=== PATIENT | female | born 1975 | race African-American/Black ===

== ENCOUNTER → 2023-08-28 | Day surgery (SDC) | payer MEDICARE, MEDICAID ==
[~2023-08-28] VITALS: Ht 167.6 cm; Wt 89.4 kg
[~2023-08-28] MED LIST: ACETAMINOPHEN 500MG TABLET ONE; ALBU90AE INH; ALBUMIN HUMAN 12.5GM/50ML (25%) IV ONE; ALBUMIN HUMAN 5% 500 ML IV NR; ALBUMIN HUMAN 5% 500 ML IV SCH; BUDE10.26 IH; BUPIVACAINE HCL/PF 0.5% (5MG/ML) 10ML ONE; CALCIUM CHLORIDE 1GM/10ML SYR IV ONE; CARV3.1242 PO; CEFAZOLIN SODIUM 1000MG/VIAL ONE; FAMO20TA8 MT; FENTANYL CITRATE/PF 50MCG/ML 2ML VIAL IV PRN; FENTANYL CITRATE/PF 50MCG/ML 2ML VIAL ONE; FOLI-43 MT; FURO40TA5 MT; GLYCOPYRROLATE 0.2 MG/ML 2ML VIAL ONE; HYDROCODONE/ACETAMINOPHEN 5/325MG TABLET PO NR; LACT10SO7 MT; LACTATED RINGERS 1,000 ML IV SCH; METOCLOPRAMIDE HCL 10MG/2ML VIAL ONE; MIDAZOLAM HCL 2 MG/2 ML VIAL ONE; NEOSTIGMINE METHYLSULFATE 1MG/ML 10 ML VIAL ONE; ONDANSETRON HCL 4MG/2ML INJ IV PRN; ONDANSETRON HCL 4MG/2ML INJ ONE; PHENYLEPHRINE HCL 10 MG/ML 1ML (IV VIAL) IV ONE; POTA8CAP20 PO; PROPOFOL 10MG/ML 100ML 0 ML IV ONE; PROPOFOL 10MG/ML 100ML 100 ML IV ONE; RIVA20TA MT; SACU1TAB PO; SKIN ADHESIVE 0.7 GM EA TOP ONE; SPIR25TA6 MT; SUCCINYLCHOLINE CHLORIDE 200MG/10ML IV ONE; VECURONIUM BROMIDE 10 MG/VIAL IV ONE
[2023-08-28 06:05] LABS: CLARITY URINE CLEAR (CLEAR); COLOR URINE YELLOW (YELLOW); GLUCOSE URINE NEGATIVE (NEGATIVE); KETONES URINE NEGATIVE (NEGATIVE); LEUKOCYTE ESTERASE URINE NEGATIVE (NEGATIVE); NITRITE URINE NEGATIVE (NEGATIVE); OCCULT BLOOD URINE 1+ (NEGATIVE); PROTEIN URINE NEGATIVE (NEGATIVE); SPECIFIC GRAVITY URINE 1.011 (1.005-1.030)
[2023-08-28 06:07] LABS: BACTERIA URINE NONE SEEN; SQUAMOUS EPITHELIAL CELL URINE NONE SEEN /lpf (RARE/1+); WBC URINE NONE SEEN /hpf (0-2); YEAST URINE NONE SEEN
[2023-08-28 06:13] LABS: UCG QC LOT# 693477; UCG SCREEN NEGATIVE
[2023-08-28 06:18] LABS: INR 1.3; PARTIAL THROMBOPLASTIN TIME 31.5 sec (23.4-31.0); PROTHROMBIN TIME 13.5 sec (9.6-11.0)
[2023-08-28 06:24] LABS: CHLORIDE 108 mEq/L (98-107); INDEX HEMOLYSI 1 (1-3); INDEX ICTERIC 1 (1-4); INDEX LIPEMIC 1 (1-3); POTASSIUM 3.8 mEq/L (3.5-5.1); SODIUM 140 mEq/L (136-145)
[2023-08-28 06:25] LABS: CALCIUM 8.5 mg/dL (8.5-10.1)
[2023-08-28 06:30] LABS: CARBON DIOXIDE 27 mEq/L (21-32); CREATININE 0.9 mg/dL (0.6-1.3); GLUCOSE 92 mg/dL (70-105); UREA NITROGEN BLOOD 19 mg/dL (7-21)
[2023-08-28 08:41] LABS: BG BASE EXCESS -3.4 mmol/L (-2.0-2.0); BG CARBOXYHEMOGLOBIN 0.4 % (0.5-1.5); BG DEOXYHEMOGLOBIN 0.9 % (0.0-5.0); BG HCO3 ACT 21.2 mmol/L (22.0-26.0); BG METHEMOGLOBIN 0.3 % (0.0-1.5); BG OXYGEN SATURATION 99.1 % (92.0-98.5); BG OXYHEMOGLOBIN 98.4 % (94.0-97.0); BG PCO2 36.8 mmHg (35.0-45.0); BG PH 7.379 (7.350-7.450); BG PO2 184.4 mmHg (75.0-100.0); BG SAMPLE SITE Other; BG TOTAL HEMOGLOBIN 11.9 g/dL (12.0-18.0)
== END | disposition home or self-care (01) ==
LOC: OR 05:31
PROVIDERS: ATTEND Surgery
DX: K80.10 Calculus of gallbladder with chronic cholecystitis without obstruction (principal); I11.0 Hypertensive heart disease with heart failure; I50.22 Chronic systolic (congestive) heart failure; I48.91 Unspecified atrial fibrillation; J45.909 Unspecified asthma, uncomplicated; E66.3 Overweight; Z79.899 Other long term (current) drug therapy; Z98.890 Other specified postprocedural states; Z68.31 Body mass index [BMI] 31.0-31.9, adult
CPT/HCPCS: 80048; 81003; 81025; 85610; 85730; 36415; 88304; 82805; 82375; 36600; 47562; J3010; P9041; J3490 ×4; J0690; J2765; J2250; J2710; J2405; J2370; J2704; J0330; A4217 ×2; Z7610 ×23; J7030; P9047

== ENCOUNTER → 2023-09-25 | Day surgery (SDC) | payer MEDICARE, MEDICAID ==
[~2023-09-25] MED LIST changes: -ACETAMINOPHEN 500MG TABLET ONE; -ALBUMIN HUMAN 12.5GM/50ML (25%) IV ONE; -ALBUMIN HUMAN 5% 500 ML IV NR; -ALBUMIN HUMAN 5% 500 ML IV SCH; -BUPIVACAINE HCL/PF 0.5% (5MG/ML) 10ML ONE; -CALCIUM CHLORIDE 1GM/10ML SYR IV ONE; -CEFAZOLIN SODIUM 1000MG/VIAL ONE; -FENTANYL CITRATE/PF 50MCG/ML 2ML VIAL IV PRN; +FLUT1AER5 IH; -FURO40TA5 MT; -GLYCOPYRROLATE 0.2 MG/ML 2ML VIAL ONE; -HYDROCODONE/ACETAMINOPHEN 5/325MG TABLET PO NR; -LACTATED RINGERS 1,000 ML IV SCH; +LIDOCAINE 2% 6ML GLYDO MM ONE; -METOCLOPRAMIDE HCL 10MG/2ML VIAL ONE; -MIDAZOLAM HCL 2 MG/2 ML VIAL ONE; +MIDAZOLAM HCL 5 MG/5 ML VIAL ONE; -NEOSTIGMINE METHYLSULFATE 1MG/ML 10 ML VIAL ONE; -ONDANSETRON HCL 4MG/2ML INJ IV PRN; -ONDANSETRON HCL 4MG/2ML INJ ONE; -PHENYLEPHRINE HCL 10 MG/ML 1ML (IV VIAL) IV ONE; -POTA8CAP20 PO; -PROPOFOL 10MG/ML 100ML 0 ML IV ONE; -PROPOFOL 10MG/ML 100ML 100 ML IV ONE; -SKIN ADHESIVE 0.7 GM EA TOP ONE; +SPIR25TA6 PO; -SUCCINYLCHOLINE CHLORIDE 200MG/10ML IV ONE; +TETRACAINE/BENZOCAINE/BUTAMBEN 20 GM SPRAY MM ONE; -VECURONIUM BROMIDE 10 MG/VIAL IV ONE
[2023-09-25 09:12] LABS: UCG SCREEN NEGATIVE
== END | disposition home or self-care (01) ==
LOC: CCL 08:26
PROVIDERS: ATTEND Specialist
DX: I08.1 Rheumatic disorders of both mitral and tricuspid valves (principal); I48.91 Unspecified atrial fibrillation; I50.9 Heart failure, unspecified; Z79.899 Other long term (current) drug therapy; Z98.890 Other specified postprocedural states
CPT/HCPCS: 81025; 93325; 93312; J3010; J2250; Z7610 ×5